=== PATIENT | female | born 1965 | race Caucasian/White ===

== ENCOUNTER 2018-10-31 12:23 | Emergency (ER) | payer MEDICAID ==
[~2018-10-31] VITALS: Ht 165.1 cm; Wt 72.6 kg
[2018-10-31 12:36] VITALS: Ht 165.1 cm; Wt 72.6 kg
[2018-10-31 13:18] LABS: CARBON DIOXIDE 31.6 mmol/L (21-32); CHLORIDE SERUM 104 mmol/L (98-107); CREATININE SERUM 0.9 mg/dL (0.6-1.0); GFR1 > 60 mL/min; GLUCOSE SERUM 80 mg/dL (74-106); POTASSIUM SERUM 4.5 mmol/L (3.5-5.1); SODIUM SERUM 142 mmol/L (136-145)
[2018-10-31 13:20] LABS: BASOPHIL % 0.5 % (0-2); PLATELET COUNT 348 x10^3mcL (130-400); RED CELL DISTRIBUTION WIDTH 13.2 % (11.5-14.5)
[2018-10-31 13:23] LABS: ALBUMIN 3.6 g/dL (3.4-5.0); ALKALINE PHOSPHATASE 86 U/L (46-116); ALT/SGPT 140 U/L (14-59); AST/SGOT 66 U/L (15-37); BILIRUBIN TOTAL 0.31 mg/dL (0.20-1.00); TOTAL PROTEIN, SERUM 7.8 g/dL (6.4-8.2)
[2018-10-31 20:35] VITALS: BP 119/78
== END 2018-10-31 20:35 | disposition home or self-care (01) ==
LOC: ED 12:23
DX: R10.31 Right lower quadrant pain (principal); M54.41 Lumbago with sciatica, right side
CPT/HCPCS: J2270; J2405; J7030; Q9967